=== PATIENT | male | born 1955 | race Caucasian/White ===

== ENCOUNTER 2020-08-08 07:23 | Day surgery (SDC) | payer OTHER, SELFPAY ==
[2020-08-03 09:35] VITALS: BMI 33.5
--- NOTE | 2020-08-03 16:31 | MHC.SHP ---
Pre-Procedural Eval Section A The patient is an INPATIENT: No The History & Physical has been completed within 30 days and I have reviewed it.: Yes Section B Chief Complaint: cataract Allergies: Allergies Allergy/AdvReac Type Severity Reaction Status Date / Time No Known Allergies Allergy Verified 08/03/20 09:37 Plan Diagnosis/Plan: Unchanged I have reviewed the history and physical and performed a pertinent physical examination on my patient. No changes have occurred unless specified.
--- NOTE | 2020-08-05 13:47 | HO.ANESPROP2 ---
Documented by User: Krystin Choudhury 08/05/20 13:49 HPI - Anesthesia Eval Consult details Narrative: 64yo M for Right Cataract Extraction IOL Insertion [facility] Past Medical History Medical History Allergic rhinitis Aortic valve sclerosis Arthritis Gout History of Graves' disease Hypercholesteremia Hypothyroid Murmur Obesity LYDIA (obstructive sleep apnea) Surgical History Surgical History Hx of arthroscopy of right knee Hx of colonoscopy Social History Social History Patient Tobacco Use Status: Former Tobacco user Quit Date: 1994 Tobacco use type: Cigarette Are you DNR?: No Advance Directives: No Advance Directives Information Provided: No Advance Directives on File: No Meds Allergies Allergy/AdvReac Type Severity Reaction Status Date / Time No Known Allergies Allergy Verified 08/03/20 09:37 Home Medications Medication Instructions Recorded Confirmed Last Taken Type levothyroxine 1 tab PO DAILY 08/03/20 08/03/20 Unknown History allopurinol 1 tab PO DAILY 08/05/20 08/05/20 Unknown History omeprazole 1 cap PO DAILY 08/05/20 08/05/20 Unknown History sildenafil 0.5 - 1 tab PO 08/05/20 08/05/20 Unknown History tamsulosin 1 cap PO BEDTIME 08/05/20 08/05/20 Unknown History Exam Exam Date and Time: August 05, 2020 1347 Height,Weight and Vital Signs: Height 5 ft 11 in Weight 108.862 kg Narrative Narrative: EKG 08/2020 SB @ 57, otherwise nml Assessment and Plan Assessment Anesthesia Assessment: Chart Reviewed Documented by User: Charlie Mancia 08/08/20 08:09 [facility] Past Medical History Medical History Allergic rhinitis Aortic valve sclerosis Arthritis Gout History of Graves' disease Hypercholesteremia Hypothyroid Murmur Obesity LYDIA (obstructive sleep apnea) Surgical History Surgical History Hx of arthroscopy of right knee Hx of colonoscopy Social History Social History Patient Tobacco Use Status: Former Tobacco user Quit Date: 1994 Tobacco use type: Cigarette Are you DNR?: No Advance Directives: No Advance Directives Information Provided: No Advance Directives on File: No Meds Allergies Allergy/AdvReac Type Severity Reaction Status Date / Time No Known Allergies Allergy Verified 08/03/20 09:37 Home Medications Medication Instructions Recorded Confirmed Last Taken Type levothyroxine 1 tab PO DAILY 08/03/20 08/03/20 Unknown History allopurinol 1 tab PO DAILY 08/05/20 08/05/20 Unknown History omeprazole 1 cap PO DAILY 08/05/20 08/05/20 Unknown History sildenafil 0.5 - 1 tab PO 08/05/20 08/05/20 Unknown History tamsulosin 1 cap PO BEDTIME 08/05/20 08/05/20 Unknown History Exam Airway Mallampati Class: II TM Dist: >3cm Neck ROM: Full Partial: Upper Loose/Missing/Broken Teeth: Yes Heart: [id number] Lungs: cta b/l Assessment and Plan Assessment Anesthesia Assessment: Anesthesia Plan Discussed, PAT Visit and Chart Reviewed Final Anesthetic Review NPO: Yes ASA Class: III Final Preanesthetic Review: No Changes in Pt Med Stat, Meds/Allgs Chart Reviewed, Consent Obtained/Reviewed and Anes Risks/Benef Reviewed Patient Risk: Low Procedure Risk: Low Assessment/Block/Sedation in SS: Assess/Block/Sedation-SS Anesthetic Plan Anesthetic Plan: MAC: and Agree w/ Assess. and Plan Disposition: Standard PACU
[2020-08-08 07:52] VITALS: BP 136/70; PULSE 66; RESP 18; TEMP 36.6; O2SAT 96
[2020-08-08] MEDS: Tropicamide 1 % Ophth Sol 3 ML BTL 1 DROP EYE-RIGHT ×3 (07:53→07:55)
[2020-08-08] MEDS: Lactated Ringers 500 ML 50 ML IV (07:53)
[2020-08-08] MEDS: Tetracaine HCl/PF 0.5% Oph Sol 4 ML DROPS 1 DROP EYE-RIGHT (07:53)
[2020-08-08] MEDS: Phenylephrine HCL 2.5% Oph SoL 2 ML BOTTLE 1 DROP EYE-RIGHT ×3 (07:54→07:55)
--- NOTE | 2020-08-08 09:02 | HO.PNOPHT ---
Ophthalmology Procedure Procedure Date of Service: 08/08/20 Ophthalmology Viscoelastic: Jeffery Landt Dual Pack Pro Ophthalmology Lenses: TECNOMI [id number] (21) Procedure Notes: PREOPERATIVE DIAGNOSIS: Decreased visual acuity right eye secondary to cataract POSTOPERATIVE DIAGNOSIS: Same PROCEDURE: Right cataract extraction with intraocular lens insertion SURGEON: Moncho Rose M.D. ANESTHESIA: Topical/MAC ESTIMATED BLOOD LOSS: None COMPLICATIONS: None After obtaining informed consent, the patient was brought to the operating room suite and placed in the supine position. After adequate sedation per anesthesia, topical drops of Tetracaine were given to the right eye. The eye was then prepped and draped in the usual sterile fashion. The operating room microscope was then positioned over the operative eye and a lid speculum placed. A paracentesis was created. Viscoelastic was then instilled into the anterior chamber. A three plane incision was then created temporally, utilizing a 2.85 mm keratome. Capsulotomy forceps were then utilized to create a circular tear capsulotomy. Hydrodissection and hydrodelineation were carried out until adequate mobilization of the nucleus occurred. Phacoemulsification was then utilized to remove the dense central nucleus followed by removal of the cortical material utilizing the automated aspiration irrigation unit. Viscoelastic was instilled into the posterior capsular bag followed by placement of a posterior chamber intraocular lens without difficulty. The residual Viscoelastic was then removed utilizing the automated IA machine. The wound was checked and found to be watertight. The patient tolerated the procedure well and the lid speculum was removed. Intracameral injection of Vigamox 0.1 mL followed by a subtenon injection of Kenalog-40 0.2 mL were administered. The patient will be seen in the a.m.
[2020-08-08 09:23] VITALS: BP 130/83; PULSE 59; RESP 18; TEMP 36.3; O2SAT 98
== END 2020-08-08 09:30 | disposition home or self-care (01) ==
PROVIDERS: PCP Internal Medicine; Visit Provider Ophthalmology
PROC: (CPT 66985; principal; 2020-08-08 09:10)
DX: H25.11 Age-related nuclear cataract, right eye (principal); H52.4 Presbyopia; H18.413 Arcus senilis, bilateral; E03.9 Hypothyroidism, unspecified; F17.290 Nicotine dependence, other tobacco product, uncomplicated; Z79.899 Other long term (current) drug therapy; Z87.891 Personal history of nicotine dependence
CPT/HCPCS: 66984; J2250; J3300; V2632

== ENCOUNTER 2020-08-22 06:36 | Day surgery (SDC) | payer OTHER, SELFPAY ==
[2020-08-03 09:38] VITALS: BMI 33.5
--- NOTE | 2020-08-19 09:32 | HO.ANESPROP2 ---
Documented by User: Krystin Choudhury 08/19/20 09:33 HPI - Anesthesia Eval Consult details Narrative: 65yo M for Left Cataract Extraction IOL Insertion PCP cleared Right eye 08/08/20: [facility] 2 [facility] Past Medical History Medical History Allergic rhinitis Aortic valve sclerosis Arthritis Gout History of Graves' disease Hypercholesteremia Hypothyroid Murmur Obesity LYDIA (obstructive sleep apnea) Surgical History Surgical History Hx of arthroscopy of right knee Hx of colonoscopy Social History Social History Patient Tobacco Use Status: Former Tobacco user Quit Date: 1994 Tobacco use type: Cigarette Are you DNR?: No Advance Directives: No Advance Directives Information Provided: No Advance Directives on File: No Meds Allergies Allergy/AdvReac Type Severity Reaction Status Date / Time No Known Allergies Allergy Verified 08/03/20 09:37 Home Medications Medication Instructions Recorded Confirmed Last Taken Type levothyroxine 1 tab PO DAILY 08/03/20 08/03/20 08/22/20 History allopurinol 1 tab PO DAILY 08/05/20 08/05/20 Unknown History omeprazole 1 cap PO DAILY 08/05/20 08/05/20 Unknown History sildenafil 0.5 - 1 tab PO 08/05/20 08/05/20 Unknown History tamsulosin 1 cap PO BEDTIME 08/05/20 08/05/20 Unknown History Exam Exam Date and Time: August 19, 2020 0932 Height,Weight and Vital Signs: Height 5 ft 11 in Weight 108.862 kg Assessment and Plan Assessment Anesthesia Assessment: Chart Reviewed Documented by User: Susan Cast 08/22/20 07:55 [facility] Past Medical History Medical History Allergic rhinitis Aortic valve sclerosis Arthritis Gout History of Graves' disease Hypercholesteremia Hypothyroid Murmur Obesity LYDIA (obstructive sleep apnea) Surgical History Surgical History Hx of arthroscopy of right knee Hx of colonoscopy Social History Social History Patient Tobacco Use Status: Former Tobacco user Quit Date: 1994 Tobacco use type: Cigarette Are you DNR?: No Advance Directives: No Advance Directives Information Provided: No Advance Directives on File: No Meds Allergies Allergy/AdvReac Type Severity Reaction Status Date / Time No Known Allergies Allergy Verified 08/03/20 09:37 Home Medications Medication Instructions Recorded Confirmed Last Taken Type levothyroxine 1 tab PO DAILY 08/03/20 08/03/20 08/22/20 History allopurinol 1 tab PO DAILY 08/05/20 08/05/20 Unknown History omeprazole 1 cap PO DAILY 08/05/20 08/05/20 Unknown History sildenafil 0.5 - 1 tab PO 08/05/20 08/05/20 Unknown History tamsulosin 1 cap PO BEDTIME 08/05/20 08/05/20 Unknown History Exam Airway Mallampati Class: II TM Dist: >3cm Neck ROM: Full Heart: rrr Lungs: cta Assessment and Plan Assessment Anesthesia Assessment: Anesthesia Plan Discussed and Chart Reviewed Final Anesthetic Review NPO: Yes (Sip water with med) ASA Class: II Final Preanesthetic Review: No Changes in Pt Med Stat and Consent Obtained/Reviewed Patient Risk: Intermediate Procedure Risk: Intermediate Anesthetic Plan Anesthetic Plan: MAC: Disposition: Standard PACU
[2020-08-22 07:05] VITALS: BP 141/92; PULSE 58; RESP 18; TEMP 36.3; O2SAT 96
[2020-08-22] MEDS: Tetracaine HCl/PF 0.5% Oph Sol 4 ML DROPS 1 DROP EYE-LEFT (07:09)
[2020-08-22] MEDS: Tropicamide 1 % Ophth Sol 3 ML BTL 1 DROP EYE-LEFT ×3 (07:11→07:18)
[2020-08-22] MEDS: Phenylephrine HCL 2.5% Oph SoL 2 ML BOTTLE 1 DROP EYE-LEFT ×3 (07:13→07:20)
[2020-08-22] MEDS: Lactated Ringers 500 ML 50 ML IV (07:46)
--- NOTE | 2020-08-22 09:27 | HO.PNOPHT ---
Ophthalmology Procedure Procedure Date of Service: 08/22/20 Ophthalmology Viscoelastic: Healon Duet Dual Pack Pro Ophthalmology Lenses: TECNOMI [id number] (100) Procedure Notes: PREOPERATIVE DIAGNOSIS: Decreased visual acuity left eye secondary to cataract POSTOPERATIVE DIAGNOSIS: Same PROCEDURE: Left cataract extraction with intraocular lens insertion SURGEON: Moncho Rose M.D. ANESTHESIA: Topical/MAC ESTIMATED BLOOD LOSS: None COMPLICATIONS: None After obtaining informed consent, the patient was brought to the operation room suite and placed in the supine position. After adequate sedation per anesthesia, topical drops of Tetracaine were given to the left eye. The eye was then prepped and draped in the usual sterile fashion. The operating room microscope was then positioned over the operative eye and a lid speculum placed. A paracentesis was created. Viscoelastic was then instilled into the anterior chamber. A three plane incision was then created temporally, utilizing a 2.85 mm keratome. Capsulotomy forceps were then utilized to create a circular tear capsulotomy. Hydrodissection and hydrodelineation were carried out until adequate mobilization of the nucleus occurred. Phacoemulsification was then utilized to remove the dense central nucleus followed by removal of the cortical material utilizing the automated aspiration irrigation unit. Viscoat elastic was instilled into the posterior capsular bag followed by placement of a posterior chamber intraocular lens without difficulty. The residual Viscoat elastic was then removed utilizing the automated IA machine. The wound was check and found to be watertight. The patient tolerated the procedure well and the lid speculum was removed. Intracameral injection of Vigamox 0.1 mL followed by a subtenon injection of Kenalog-40 0.2 mL were administered. The patient will be seen in the a.m.
[2020-08-22 09:50] VITALS: BP 139/89; PULSE 64; RESP 17; TEMP 36.3; O2SAT 96
== END 2020-08-22 09:54 | disposition home or self-care (01) ==
PROVIDERS: PCP Internal Medicine; Visit Provider Ophthalmology
PROC: (CPT 66985; principal; 2020-08-22 09:10)
DX: H25.12 Age-related nuclear cataract, left eye (principal); H52.4 Presbyopia; G47.33 Obstructive sleep apnea (adult) (pediatric); J30.9 Allergic rhinitis, unspecified; E03.9 Hypothyroidism, unspecified; Z79.899 Other long term (current) drug therapy; Z87.891 Personal history of nicotine dependence
CPT/HCPCS: 66984; J2250; J3010; J3300; V2632